=== PATIENT | male | born 1985 | race Caucasian/White ===

== ENCOUNTER 2019-12-10 18:23 | Emergency (ER) | payer BC, SELFPAY ==
[2019-12-10 18:24] VITALS: BP 111/75; PULSE 81; RESP 20; TEMP 36.9; O2SAT 98
--- NOTE | 2019-12-10 18:42 | ED.SKABFB ---
HPI - Skin/Abscess/Foreign Bdy General Chief complaint: Skin/Abscess/Foreign Body Stated complaint: bites on arm Time Seen by Provider: 12/10/19 18:26 Source: patient Mode of arrival: ambulatory Limitations: no limitations History of Present Illness HPI narrative: 34-year-old man comes in today complaining of a painful draining lesions on his left arm that has been present for a week. Patient states that he has had white pus from 2 of them and the 3rd 1 wound drain. He denies IV and transcutaneous drug use. He denies previous similar symptoms. He has had no fever, nausea, vomiting, red streaks going up his arms. complaint: abscess/boil Onset (ago): day(s) (7) Location: LUE Severity: moderate Quality: burning and other ( and sometimes itchy) Pain Consistency: constant Relieving factors: none Exacerbating factors: none Associated symptoms: denies other symptoms Treatments prior to arrival: attempted to drain pus at home Related Data Allergies Allergy/AdvReac Type Severity Reaction Status Date / Time No Known Allergies Allergy Unverified 01/16/19 12:50 Review of Systems Constitutional: Constitutional: Denies chills and Denies fever(s) Respiratory: Respiratory: Denies cough and Denies dyspnea Gastrointestinal: Gastrointestinal: Denies nausea and Denies vomiting Musculoskeletal: Musculoskeletal: Denies back pain, Denies arthralgias and Denies joint swelling Integumentary/Breasts: Skin/Breast: Denies pruritus, Denies erythema and Denies rash Neurologic: Denies vertigo, Denies dizziness and Denies syncope Hematologic/Lymphatic: Hematologic/Lymphatic: Denies easy bleeding and Denies easy bruising Allergic/Immunologic: Allergic/Immunologic: Denies lip swelling and Denies wheezing PMFSH Social History Social History Smoking status: Never smoker Alcohol intake: never Substance use: never Living arrangements: with family Exam Const: General: healthy appearing and alert Orientation/consciousness: patient oriented x3 Limitations: no limitations Other: mild acute distress. HENMT: Mouth: Yes moist mucous membranes Throat: posterior oropharynx normal Eyes: Conjunctivae: conjunctivae normal EOM: EOMs intact bilaterally Resp: Effort & Inspection: normal respiratory effort and not labored Auscultation: clear to auscultation bilaterally, no rales, no rhonchi and no wheezes Cardio: Rate: regular rate Rhythm: regular rhythm Heart sounds: no murmurs Skin: General skin exam: normal color, no jaundice and no pallor Other: Patient has to raised indurated areas on the left lateral arm above the elbow which are excoriated centrally, erythematous and mildly tender. There is the similar 2 cm lesion with a 5 cm halo of erythema around it on the left lateral forearm. There is no lymphangitis. Neuro: General: patient oriented x3, moves all extremities, no focal motor deficits and CN's II-XI intact bilaterally Speech: normal speech Gait exam (Neuro): Normal gait present Extrem: General: normal to inspection and no clubbing, cyanosis or edema Psych: Appearance: grossly normal and well kempt Mental Status: mental status grossly normal Affect: normal affect Attitude: cooperative Thought content: Yes Normal thought content present Discharge Plan Discharge Clinical Impression: Abscess of skin or subcutaneous tissue Patient Disposition: Home, Self-Care Condition: Stable Instructions: Antibiotic Form, Abscess (ED) Additional Instructions: Warm compresses to the wound for 10-20 minutes 3 times a day. Follow up with your doctor in the next 2-3 days for re-evaluation. If you have a red streak going up the arm, fever, vomiting or her feeling weak, be evaluated immediately. Prescriptions: New sulfamethoxazole-trimethoprim [Bactrim DS] 800-160 mg tablet 1 tablet PO Q12H Qty: 20 RF: 0 mupirocin 2 % ointment 1 applic TOPICAL TI
[2019-12-10 19:25] VITALS: RESP 20; O2SAT 98
== END 2019-12-10 19:26 | disposition home or self-care (01) ==
PROVIDERS: Emergency Provider Emergency Medicine
DX: L02.91 Cutaneous abscess, unspecified (principal)
CPT/HCPCS: 99283

== ENCOUNTER 2020-11-11 23:44 | Emergency (ER) | payer SELFPAY ==
--- NOTE | ~2020-11-11 | CT_ITS ---
EXAMINATION: CT abdomen pelvis wo con DATE: 11/12/2020 01:15 INDICATION: Right flank pain TECHNIQUE: Computed tomography (CT) of the abdomen and pelvis was performed without intravenous contr ast. The dose-length product was 257.61 mGy-cm. Automated exposure control and iterative reconstructi on technique were employed. COMPARISON: None. FINDINGS: Lung bases are unremarkable. No significant pleural or pericardial effusion. Heart size is normal. Moderate debris in the stomach which is distended. The liver, spleen, pancreas, adrenal gland s and kidneys are unremarkable. Gallbladder is present. Nonobstructive bowel gas pattern. No acute os seous abnormality. No free air or free fluid. No significant vascular abnormality. No lymphadenopathy . IMPRESSION: 1. No acute abdominal abnormality. Reviewed, dictated and finalized at location A.
[2020-11-11 23:45] VITALS: BP 129/104; PULSE 60; RESP 18; TEMP 36.4; O2SAT 100
[2020-11-12 00:13] LABS: Basophils Percent Auto 0.2 % (0.2-1.2); Eosinophils Absolute Auto 0.2 K/mm3 (0-0.3); Eosinophils Percent Auto 1.5 % (0-4.4); Hematocrit 45.8 % (37.0-47.0); Hemoglobin 15.6 g/dL (12.0-15.0); Immature Granulocyte Absolute 0.05 K/mm3 (0.00-0.031); Immature Granulocyte Percent A 0.4 % (0-0.5); Lymphocytes Absolute Auto 1.48 K/mm3 (0.9-3.2); Lymphocytes Percent Auto 12.2 % (18.3-44.2); Mean Corpuscular HGB Conc 34.1 g/dl (32-36); Mean Corpuscular Volume 91.1 fl (80-100); Mean Platelet Volume 8.8 fl (7.4-10.4); Monocytes Absolute Auto 0.7 K/mm3 (0.1-0.6); Monocytes Percent Auto 5.9 % (2.6-8.5); Neutrophils Absolute Auto 9.7 K/mm3 (1.3-6.7); Neutrophils Percent Auto 79.8 % (45.5-73.1); Platelet Count Result 222 k/mm3 (150-375); Red Blood Count 5.03 M/mm3 (4.2-5.4); Red Cell Distribution Width 12.7 % (11.5-14.5); White Blood Count 12.1 K/mm3 (4.5-10.0)
[2020-11-12 00:17] VITALS: BP 133/105; PULSE 56; RESP 12; O2SAT 99
--- NOTE | 2020-11-12 00:45 | PC.NURSE ---
Pt. states unable to void.
--- NOTE | 2020-11-12 01:00 | PC.NURSE ---
pt. states he cannot void and has been peeing a bunch at home.
[2020-11-12] MEDS: ONDANSETRON INJ 4 MG/2 ML VIAL IV PUSH (01:02)
[2020-11-12] MEDS: MORPHINE SULFATE (*CRX) 4 MG/ML INJ IV PUSH (01:02)
[2020-11-12] MEDS: KETOROLAC 30 MG/ML VIAL (*BKC) IV PUSH (01:03)
--- NOTE | 2020-11-12 01:19 | ED.GENADULT ---
HPI - General Adult General Chief complaint: Abdominal Pain Stated complaint: kidney stone Time Seen by Provider: 11/12/20 00:41 History of Present Illness HPI narrative: Patient 35-year-old gentleman who presents the emergency department with chief complaint of right flank pain. The patient states that he had history of kidney stones reports this 1 began today reports that is a sharp-like pain in his right flank area patient denies radiation there is no little bit of nausea with this reports in the past has been able to pass stones without requiring any stents or lithotripsy. Related Data Home Medications Medication Instructions Recorded Confirmed No Home Medications 11/11/20 Allergies Allergy/AdvReac Type Severity Reaction Status Date / Time No Known Allergies Allergy Verified 11/11/20 23:44 Review of Systems Review of Systems: Narrative: A 10 system review of systems was completed on the patient and is negative except for what is stated in the HPI. Nursing and ancillary documentation was reviewed. [facility] Social History Social History Gender identity (if verbalized by the patient): Male Sexual Orientation (if Verbalized by the Patient): Straight or Heterosexual Comments Past medical history significant for kidney stones Social history the patient denies illicit drug use Exam Narrative: Exam Narrative: GENERAL: Well-appearing, well-nourished, and in no acute distress. HEAD: Normocephalic, atraumatic. EYES: PERRLA and EOMI. ENT: Nares clear, no rhinorrhea or epistaxis. Mucous membranes moist. NECK: Supple. CHEST: Clear to auscultation. No respiratory distress. HEART: Regular rate and rhythm. No murmur heard. Normal peripheral pulses. ABDOMEN: Soft, nontender, nondistended, normal active bowel sounds. EXTREMITIES: Normal range of motion. No edema. SKIN: Warm, dry, no rash. NEURO: No focal deficits. Alert and oriented x3. PSYCH: Normal mood and affect. Course Vital Signs Vital signs: Vital Signs Temperature 36.4 C L 11/11/20 23:45 Pulse Rate 60 11/11/20 23:45 Respiratory Rate 18 11/11/20 23:45 Blood Pressure 129/104 H 11/11/20 23:45 Pulse Oximetry 100 11/11/20 23:45 Temperature 36.4 C L 11/11/20 23:45 Pulse Rate 98 11/12/20 02:45 Respiratory Rate 16 11/12/20 02:45 Blood Pressure 135/84 11/12/20 02:45 Pulse Oximetry 97 11/12/20 02:45 Medical Decision Making Vital Signs Vital Signs: Vital Signs Temperature 36.4 C L 11/11/20 23:45 Pulse Rate 60 11/11/20 23:45 Respiratory Rate 18 11/11/20 23:45 Blood Pressure 129/104 H 11/11/20 23:45 Pulse Oximetry 100 11/11/20 23:45 Temperature 36.4 C L 11/11/20 23:45 Pulse Rate 98 11/12/20 02:45 Respiratory Rate 16 11/12/20 02:45 Blood Pressure 135/84 11/12/20 02:45 Pulse Oximetry 97 11/12/20 02:45 Lab Data Result diagrams: 11/12/20 00:01 11/12/20 01:29 Labs: Lab Results 11/12/20 11/12/20 11/12/20 Range/Units 00:01 01:29 02:10 WBC 12.1 H (4.5-10.0) K/mm3 RBC 5.03 (4.2-5.4) M/mm3 Hgb 15.6 H (12.0-15.0) g/dL Hct 45.8 (37.0-47.0) % MCV 91.1 (80-100) fl MCH 31.0 (26-34) pg MCHC 34.1 (32-36) g/dl RDW 12.7 (11.5-14.5) % Plt Count 222 (150-375) k/mm3 MPV 8.8 (7.4-10.4) fl Immature Gran % (Auto) 0.4 (0-0.5) % Neut % (Auto) 79.8 H (45.5-73.1) % Lymph % (Auto) 12.2 L (18.3-44.2) % [place] % (Auto) 5.9 (2.6-8.5) % Eos % (Auto) 1.5 (0-4.4) % Baso % (Auto) 0.2 (0.2-1.2) % Lymph # (Auto) 1.48 (0.9-3.2) K/mm3 [place] # (Auto) 0.7 H (0.1-0.6) K/mm3 Eos # (Auto) 0.2 (0-0.3) K/mm3 Baso # (Auto) 0.0 (0.0-0.1) K/mm3 Abs Immat Gran (auto) 0.05 H (0.00-0.031) K/mm3 Absolute Neuts (auto) 9.7 H (1.3-6.7) K/mm3 Absolute Nucleated RBC 0.0 (0.0-0.012) K/mm3 Nucleated RBC % 0.0 (0.0-0.2) % S
--- NOTE | 2020-11-12 01:30 | PC.NURSE ---
Pt. unable to urinate at this time. pt. requesting water.
--- NOTE | 2020-11-12 01:45 | PC.NURSE ---
Pt. asked to provide urine sample. states he cannot go but will try.
--- NOTE | 2020-11-12 01:50 | PC.NURSE ---
Pt. asked for urine sample and states I am working on it.
[2020-11-12 01:58] LABS: Anion Gap 8 mmol/L (8-16); Blood Urea Nitrogen 9 mg/dL (9-20); Calcium 9.2 mg/dL (8.4-10.2); Carbon Dioxide 30 mmol/L (22-30); Chloride 100 mmol/L (98-107); Estimated CRCL calculation 101 ml/min; Estimated Glomerular Filt Rate > 60; Glucose 112 mg/dL (75-110); Potassium 3.7 mmol/L (3.4-5.0); Sodium 138 mmol/L (137-145)
[2020-11-12] MEDS: SODIUM CHLORIDE 0.9% IV 1,000 ML 999 ML IV CONT (02:06)
[2020-11-12 02:23] LABS: Add Urine Microscopic? YES; Amorphous Sediment Urine Few; Appearance Urine Turbid (Clear); Bilirubin Urine Negative (Negative); Blood Urine Negative (Negative); Color Urine Amber (Yellow); Glucose Urine UA Negative (Negative); Ketones Urine Trace mg/dL (Negative); Leukocyte Esterase Ur Negative LEU/UL (Negative); Mucus Urine Moderate /lpf; Nitrate Urine Negative (Negative); Protein Urine 2+ mg/dL (Negative); Specific Grav Ur 1.028 (1.001-1.035)
[2020-11-12 02:45] VITALS: BP 135/84; PULSE 98; RESP 16; O2SAT 97
[2020-11-12] MEDS: HYDROmorphone HCL INJ (*CRX) 1 MG/ML SYR IV PUSH (03:15)
[2020-11-12 03:20] VITALS: BP 125/74; PULSE 78; RESP 17; O2SAT 97
== END 2020-11-12 03:20 | disposition home or self-care (01) ==
PROVIDERS: Emergency Provider Emergency Medicine
DX: R10.9 Unspecified abdominal pain (principal); Z87.442 Personal history of urinary calculi
CPT/HCPCS: 36415; 74176; 80048; 81001; 85025; 96361; 96374; 96375; 99284; J1170; J1885; J2270; J2405; J7030

== ENCOUNTER 2021-11-03 15:52 | Outpatient (NON) | payer BC, SELFPAY | END 2021-11-03 15:53 | disposition home or self-care (01) | LOC: CHSLAB 15:55 | PROVIDERS: PCP Family Medicine; Visit Provider Family Medicine | DX: D22.39 Melanocytic nevi of other parts of face (principal) | CPT/HCPCS: 88305; 88342 ==

== ENCOUNTER 2023-09-10 08:43 | Emergency (ER) | payer BC, SELFPAY ==
--- NOTE | ~2023-09-10 | XR_ITS ---
EXAMINATION: XR foot LT min 3V DATE: 09/10/2023 09:18 INDICATION: Left foot pain and swelling TECHNIQUE: Dorsoplantar, two oblique and lateral views of the left foot were obtained. COMPARISON: None. FINDINGS: Alignment is normal. No fracture. Joint spaces are normal with tiny marginal osteophytes at the first metatarsophalangeal joint consistent with minimal osteoarthritis. No erosions or periosteal reaction . Soft tissues are unremarkable. IMPRESSION: 1. Minimal osteoarthritis at the left first metatarsophalangeal joint. No acute osseous abnormality. Reviewed, dictated and finalized at location A.
[2023-09-10 08:47] VITALS: BP 125/79; PULSE 85; RESP 18; TEMP 36.8; O2SAT 98
--- NOTE | 2023-09-10 08:48 | ED.LOWEXIN ---
HPI - Extremity Injury (Lower) General Chief Complaint: Extremity Injury, Lower Stated Complaint: left foot injury Time Seen by Provider: 09/10/23 08:47 Source: patient Mode of arrival: ambulatory Limitations: no limitations History of Present Illness HPI Narrative: Brad is a 38-year-old male patient presenting to the emergency room today with complaints of left foot injury that occurred yesterday while he was skating. He reports he was skating with his children when he tried to stop and his foot turned approx 180 degree. Has redness and swelling to the top of the left lateral foot. Related Data Allergies Allergy/AdvReac Type Severity Reaction Status Date / Time No Known Allergies Allergy Verified 09/10/23 08:55 Review of Systems Review of Systems: Pertinent positives per HPI. Patient denies any fever, chills, rash, headache, visual changes, dizziness, cough, runny nose, sore throat, shortness of breath, chest pain, palpitations, nausea, vomiting, diarrhea, constipation, abdominal pain, or any urinary issues. [facility] Social History Social History Smoking status: Current every day smoker Alcohol intake: never Substance use: never Living arrangements: with family Gender identity (if verbalized by the patient): Male Sexual Orientation (if Verbalized by the Patient): Straight or Heterosexual Comments At the time of my signature, I reviewed and agree with the nursing past medical, surgical, social, and family history. There is no relevant family history pertinent to the patient complaint. Exam Narrative: General: Well-developed, well nourished, in no apparent distress Head: Normocephalic, atraumatic. Cardio: Regular rate and rhythm, s1 and s2 normal, no murmur appreciated. Resp: Clear to auscultation bilaterally, no rhonchi, rales, wheezing or rubs. Musculoskeletal: No deformity, tender to palpation over the dorsal lateral foot and over the lateral foot, pain with dorsal flexion and plantar flexion against resistance, pain with valgus and varus testing of foot, limited range of motion due to pain, unable to bear weight due to pain, muscle strength strong and equal, peripheral pulse strong, no edema, no cyanosis, normal gait and station Course Course Emergency Course: Portions of this record may have been created with voice recognition software. Vital Signs Vital signs: Vital Signs Temperature 36.8 C 09/10/23 08:47 Pulse Rate 85 09/10/23 08:47 Respiratory Rate 18 09/10/23 08:47 Blood Pressure 125/79 09/10/23 08:47 Pulse Oximetry 98 09/10/23 08:47 Oxygen Delivery Room Air 09/10/23 08:47 Temperature 36.8 C 09/10/23 08:47 Pulse Rate 85 09/10/23 08:47 Respiratory Rate 18 09/10/23 08:47 Blood Pressure 125/79 09/10/23 08:47 Pulse Oximetry 98 09/10/23 08:47 Oxygen Delivery Room Air 09/10/23 08:47 Vital signs reviewed MDM - Extremity Injury (Lower) MDM Narrative Medical decision making narrative: At the time of visit patient is resting comfortably on the exam table. Patient appears to be nontoxic. Diagnostic: Left foot x-ray performed and was negative for any sign of fracture or malalignment. Does have mild osteoarthritis of the 1st metatarsal. Plan: Supportive measures were discussed with the patient and they voiced understanding discharge instructions and agrees to treatment plan. Return precautions reviewed Differential Diagnosis Differential diagnosis: Likely fracture of toe and other (Foot fracture, foot sprain, tendinitis) Imaging Data Radiologist's impression: ITS Impressions Foot X-Ray 09/10/23 09:23 IMPRESSION: 1. Minimal osteoarthritis at the left first metatarsophalangeal joint. No acute osseous abnormality. 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
== END 2023-09-10 09:42 | disposition home or self-care (01) ==
PROVIDERS: Emergency Provider Nurse Practitioner Family; PCP Family Medicine
DX: S93.602A Unspecified sprain of left foot, initial encounter (principal); M19.072 Primary osteoarthritis, left ankle and foot; F17.200 Nicotine dependence, unspecified, uncomplicated; X50.9XXA Other and unspecified overexertion or strenuous movements or postures, initial encounter; Y93.51 Activity, roller skating (inline) and skateboarding
CPT/HCPCS: 73630; 99283